=== PATIENT | female | born 1990 | race Two or more races ===

== ENCOUNTER 2022-08-21 14:15 | Outpatient (CLI) | payer OTHER | END 2022-08-21 16:00 | disposition home or self-care (01) | LOC: PRENATAL 14:15 | PROVIDERS: ATTEND Obstetrics & Gynecology Maternal & Fetal Medicine | DX: O35.9XX0 Maternal care for (suspected) fetal abnormality and damage, unspecified, not applicable or unspecified (principal); O35.3XX0 Maternal care for (suspected) damage to fetus from viral disease in mother, not applicable or unspecified; Z3A.22 22 weeks gestation of pregnancy ==

== ENCOUNTER 2022-11-09 12:06 | Outpatient (CLI) | payer OTHER | END 2022-11-09 13:10 | disposition home or self-care (01) | LOC: PRENATAL 12:06 | PROVIDERS: ATTEND Obstetrics & Gynecology Maternal & Fetal Medicine | DX: O26.849 Uterine size-date discrepancy, unspecified trimester (principal); O35.9XX0 Maternal care for (suspected) fetal abnormality and damage, unspecified, not applicable or unspecified; O36.8199 Decreased fetal movements, unspecified trimester, other fetus; Z3A.33 33 weeks gestation of pregnancy ==

== ENCOUNTER 2022-12-23 16:18 | Inpatient (IN) | payer OTHER ==
[~2022-12-23] VITALS: Ht 152.4 cm; Wt 68.9 kg
[2022-12-23] MEDS ORDERED: PRENATAL TABLE1 EAC1 PO (17:44)
[2022-12-23] MEDS ORDERED: IRON325 MG PO (17:44)
[2022-12-27] MEDS ORDERED: COLACE100 MG PO (10:24)
[2022-12-27] MEDS ORDERED: PERCOCET 5-3251 EACH PO (10:24)
[2022-12-27] MEDS ORDERED: SIMETHICONE80 MG PO (10:24)
[2022-12-27] MEDS ORDERED: IBU800 MG PO (10:24)
== END 2022-12-27 11:46 | disposition home or self-care (01) | DRG 788 ==
LOC: LDR 16:18 → O/R 12-24 17:57 → OB/GYN 12-24 19:07
PROVIDERS: Student in an Organized Health Care Education/Training Program; ADMIT Obstetrics & Gynecology; ATTEND Obstetrics & Gynecology
PROC: 3E0P7VZ Introduction of Hormone into Female Reproductive, Via Natural or Artificial Opening (ICD-10-PCS; 2022-12-23)
PROC: 4A1HXCZ Monitoring of Products of Conception, Cardiac Rate, External Approach (ICD-10-PCS; 2022-12-23)
PROC: 3E033VJ Introduction of Other Hormone into Peripheral Vein, Percutaneous Approach (ICD-10-PCS; 2022-12-24)
PROC: 10D00Z1 Extraction of Products of Conception, Low, Open Approach (ICD-10-PCS; principal; 2022-12-24 17:00)
DX: O82 Encounter for cesarean delivery without indication (principal); O62.1 Secondary uterine inertia; Z3A.40 40 weeks gestation of pregnancy; Z37.0 Single live birth; Z20.822 Contact with and (suspected) exposure to COVID-19